=== PATIENT | female | born 1935 | race Caucasian/White ===

== ENCOUNTER 2018-12-04 08:01 | Emergency (ER) | payer OTHER ==
[~2018-12-04] VITALS: Ht 162.6 cm; Wt 80.0 kg
[~2018-12-04 08:01] MED LIST: AMIODARONE 150 MG INJ ONE; ATROPINE 1 MG/10 ML SYRINGE ONE; CA CHLORIDE 10% 10 ML SYRINGE ONE; EPINEPHrine 0.1 MG/ML SYG ONE; MAGNESIUM SULFATE 1 GM/100 ML D5W IVPB ONE; NA BICARBONATE 8.4% 50 ML SYG ONE
[2018-12-04 08:15] VITALS: RESP 16; Ht 162.6 cm; Wt 80.0 kg
[2018-12-04] MEDS ORDERED: NORepinephrine 8MG/250 ML (PMX 250 ML ONE (08:27)
[2018-12-04] MEDS ORDERED: SODIUM CHLORIDE 0.9% 1L BAG IV* STA (08:41)
[2018-12-04] MEDS ORDERED: VANCOMYCIN 1 GM (PMX) 250 ML IVPB STA (08:45)
[2018-12-04] MEDS ORDERED: CEFEPIME 2GM/50 ML (PMX) 50 ML IVPB STA (08:45)
[2018-12-04] MEDS ORDERED: AMIODARONE 900 MG in DEXTROSE 5% 482 ML IV SCH (09:00)
[2018-12-04] MEDS ORDERED: DOPamine-D5W 1.6 MG/ML 250 ML IV ONE (09:00)
[2018-12-04] MEDS ORDERED: NORepinephrine 8MG/250 ML (PMX 250 ML IV ONE (09:00)
[2018-12-04] MEDS ORDERED: SODIUM CHLORIDE 0.9% 500 ML BAG IV* STA (09:05)
[2018-12-04] MEDS ORDERED: IODIXANOL LOCM 50 ML BTL ONE (09:21)
[2018-12-04] MEDS ORDERED: SOD CHLORIDE 0.9% 100 ML ONE (09:21)
[2018-12-04] MEDS ORDERED: IODIXANOL LOCM 100 ML BTL ONE (09:21)
--- NOTE | 2018-12-04 10:36 | ERD ---
ER Documentation Chief Complaint Chief Complaint pt daisy from home in cardiac arrest, cpr innitiated at home HPI This is an 83-year-old female with a past medical history of dementia and diabetes who is presenting in cardiac arrest. The patient was reportedly at home with her son when she suddenly collapsed. She lost pulses, and the son started CPR shortly thereafter. He did also call an ambulance. When the ambulance responded, the patient reportedly had pulses but had agonal breathing. She was intubated. She went into cardiac arrest shortly after that. She has pulseless electrical activity. She was given 2 doses of epinephrine prior to arrival and reportedly had return of spontaneous circulation. The patient had a weak pulse when she arrived. History and physical is limited secondary to altered mentation and acuity of condition. ROS Limited secondary to acuity of condition. Allergies Allergies: Coded Allergies: No Known Allergy (Unverified , 12/04/18) PMhx/Soc Hx Neurological Disorder: Yes (Dementia) Hx Miscellaneous Medical Probl: Yes (dm) Hx Alcohol Use: No Hx Substance Use: No Hx Tobacco Use: No Smoking Status: Never smoker FmHx Family History: No diabetes Physical Exam Vitals Vital Signs Date Temp Pulse Resp B/P (MAP) Pulse Ox O2 O2 Flow FiO2 Time Delivery Rate 12/04/18 60 16 90 100 08:15 12/04/18 0 0 0/0 (0) 0 08:15 Physical Exam Objective: Vital signs reviewed Const: Unresponsive Head: Normocephalic, Atraumatic Eyes: PERRL ENT: Normal External Ears, Nose and Mouth. Resp: No voluntary respirations. Respirations being assisted via BVM by a respiratory therapist with symmetric chest wall padron. Cardio: Regular rate Abd: Non distended Skin: No petechiae or rashes Back: Deferred Ext: No cyanosis, or edema Neur: Unresponsive. Eyes closed. No voluntary movements or response to pain. Nonverbal. GCS 3. Result Diagram: 12/04/18 0650 12/04/18 0650 Results 24 hrs Laboratory Tests Test 12/04/18 06:50 White Blood Count 8.0 10^3/ul Red Blood Count 2.52 10^6/ul Hemoglobin 7.1 g/dl Hematocrit 23.8 % Mean Corpuscular Volume 94.4 fl Mean Corpuscular Hemoglobin 28.2 pg Mean Corpuscular Hemoglobin Concent 29.8 g/dl Red Cell Distribution Width 13.6 % Platelet Count 73 10^3/UL Mean Platelet Volume 8.8 fl Immature Granulocytes % 4.800 % Segmented Neutrophils % (Manual) 27 % Band Neutrophils % (Manual) 4 % Lymphocytes % (Manual) 64 % Monocytes % (Manual) 2 % Eosinophils % (Manual) 1 % Metamyelocytes % (manual) 2 % Nucleated Red Blood Cells % 1 % Immature Granulocytes # 0.380 10^3/ul Neutrophils # (Manual) 2.2 10^3/ul Band Neutrophils # 0.3 10^3/ul Lymphocytes (Manual) 5.1 10^3/ul Monocytes # (Manual) 0.1 10^3/ul Metamyelocytes # 0.1 10^3/ul Platelet Estimate DECREASED Poikilocytosis 2+ Anisocytosis 2+ Microcytosis 2+ Prothrombin Time 25.6 Sec Prothrombin Time Ratio 2.0 INR International Normalized Ratio 2.33 Activated Partial Thromboplast Time 73.9 Sec Sodium Level 147 mmol/L Potassium Level 2.8 mmol/L Chloride Level 123 mmol/L Carbon Dioxide Level 15 mmol/L Anion Gap 9 Blood Urea Nitrogen 8 mg/dl Creatinine 0.50 mg/dl Est Glomerular Filtrat Rate mL/min mL/min Glucose Level 263 mg/dl Calcium Level 5.2 mg/dl Phosphorus Level 4.1 mg/dl Magnesium Level 2.3 mg/dl Total Bilirubin 0.1 mg/dl Direct Bilirubin 0.00 mg/dl Indirect Bilirubin 0.1 mg/dl Aspartate Amino Transf (AST/SGOT) 84 IU/L Alanine Aminotransferase (ALT/SGPT) 85 IU/L Alkaline Phosphatase 57 IU/L Troponin I 0.197 ng/ml Total Protein 3.0 g/dl Albumin 1.5 g/dl Globulin 1.50 g/dl Albumin/Globulin Ratio 1.00 Lipase 48 U/L Ethyl Alcohol Level < 10.0 mg/dl Current Medications Medications Dose Sig/Lisa Start Time Status Last (Trade) Ordered Route PRN Stop Time Admin Dose Reason Admin 250 ml @ ud STK-MED 12/04/18 DC Norepinephrin ONCE .ROUTE 08:27 12/04/18 e 08:28 Amiodarone 500 ml @ 0 Q0M IV 12/04/18 HCl 900 mls/hr 09:00 mg/Dextrose Sodium 2,400 ml BOLUS OVER 2 12/04/18 DC Chloride HOURS STAT 08:41 4/4/19 (NS) IV* 08:42 Cefepime HCl 50 ml @ ONCE STAT 12/04/18 DC 100 mls/hr IVPB 08:45 12/04/18 09:14 Vancomycin 250 ml @ ONCE STAT 12/04/18 DC HCl 125 mls/hr IVPB 08:45 12/04/18 10:44 250 ml @ PER PROTOCOL 12/04/18 Norepinephrin 7.5 mls/hr ONCE IV 09:00 12/05/18 e 18:19 Dopamine 250 ml @ PER PROTOCOL 12/04/18 HCl/ 15 mls/hr ONCE IV 09:00 12/05/18 Dextrose 01:39 Sodium 500 ml ONCE STAT 12/04/18 DC Chloride IV* 09:05 12/04/18 (NS) 09:09 IV Flush 10 ml STK-MED 12/04/18 DC (NS 10 ml) ONCE .ROUTE 09:12/04/18 09:22 Sodium 100 ml @ ud STK-MED 12/04/18 DC Chloride ONCE .ROUTE 09:12/04/18 09:22 Iodixanol 100 ml STK-MED 12/04/18 DC (Visipaque ONCE .ROUTE 09:12/04/18 Locm) 09:22 Iodixanol 50 ml STK-MED 12/04/18 DC (Visipaque ONCE .ROUTE 09:12/04/18 Locm) 09:22 Procedures/MDM MDM The patient's presentation warrants further investigation. Previous medical records, if available, were reviewed. LABS The patient's laboratory testing was obtained and reviewed. No emergent alexa tment was required unless described below. CBC: Anemic. Thrombocytopenic. No E/o systemic infection. Chemistry: Hypokalemia. Hypocalcemia. Hypoalbuminemia. Transaminitis. Non- anion gap metabolic acidosis. Hyperglycemia without DKA. PT/INR: E/o significant coagulopathy Troponin: E/o acute ischemia EKG EKG read by me: Rate/Rhythm: Regular rate and rhythm at a rate of 97 bpm Intervals: Wide QRS complex. Right bundle branch block. No obvious P waves. Hondo: Right axis deviation Impression: Regular rate and rhythm, diffuse ST changes, but no obvious STEMI. Right bundle branch block EKG read by me: Rate/Rhythm: Irregular regular rhythm indicating atrial fibrillation at 69 bpm with premature aberrant conduction Intervals: Wide QRS Hondo: Indeterminate Impression: Atrial fibrillation. Nonspecific repolarization changes. No STEMI. IMAGING Imaging and Radiology interpretation reviewed. CXR FINDINGS: The endotracheal tube tip is approximately 3.9 cm above the aiyana. There is a right internal jugular central venous catheter with tip in the mid SVC. Evaluation of lung parenchyma is limited secondary to overlying defibrillator pads. There is prominence of the interstitial markings. There left lower lobe interstitial opacities. No pleural effusion or pneumothorax is seen. The cardiomediastinal silhouette is mildly enlarged. Calcifications are seen within the aortic arch. The osseous structures demonstrate senescent changes. IMPRESSION: 1. Limited evaluation of lung parenchyma secondary to overlying defibrillator pads. There left basilar interstitial opacities which may reflect atelectasis or pneumonia. 2. Mild prominence of the interstitial markings, may reflect mild underlying interstitial edema or chronic lung changes. 3. Mild cardiomegaly and aortic atherosclerosis. 4. Tubes and lines, as described above. Electronically viewed and signed by Rocio Herr MD, on 12/04/2018 09:56 TREATMENT/DISPOSITION The patient stented initially after reported return of spontaneous circulation. Unfortunately, the patient lost pulses in the emergency department shortly after arrival. ACLS protocol was followed. Appropriate chest compressions were applied. Please see code sheet for detail of medication administration. The pa tient was given multiple rounds of epinephrine and bicarbonate. The patient was given magnesium and calcium in the emergency department as well. The patient's blood work was not immediately available to me during the code. The patient was ultimately found to be hypokalemic, but I do not feel that giving the patient potassium emergently would have changed the ultimate outcome. The patient was i nitially in PEA. She did at one time go into ventricular fibrillation and she was defibrillated twice. She was also given boluses of amiodarone and started on an amiodarone drip. The patient was hypotensive and bradycardic during her episodes of return of spontaneous circulation. She was ultimately started on norepinephrine and dopamine drips. I did place a central line in her right IJ without complication to allow for safe administration of these medications described above. The x-ray revealed a adequate placement. Please see procedure note below. The chest x-ray also demonstrated appropriate position of the endotracheal tube, placed prior to arrival by the paramedics. The patient's EKG did show findings that were potentially concerning for acute coronary syndrome. A code STEMI was called. The on-call family resource management specialist, Dr. Stewart, evaluated the patient and EKG at bedside and did not feel that it would be appropriate to bring the patient to the cardiac catheterization lab emerge ntly. The patient was never stable enough to receive any CT imaging. While the patient had a few instances of transient return of spontaneous circulation, we were never able to obtain sustained pulses. I had a very long conversation with the family regarding the patient's condition and very poor prognosis. The patient expressed understanding and were okay with ceasing resuscitative efforts. The patient had no heartbeat or pulse. She had no spontaneous breaths. Her pupils were fixed and dilated. She had no gag or corneal reflex. The patient had no spontaneous movements. She had no signs of life. Time of : 9:30 AM on December 04, 2018. PROCEDURES Central Line Placement Performer: Placed by me. Preprocedure: Central line placed emergently without ability to obtain consent. Patient sterilely draped, full prep, gown, glove, mask, time out performed. Anesthesia: None Location: Right internal jugular vein Device: Multiple lumen Technique: Seldinger technique. Secured with suture. Results: Venous return from all ports with easy saline flush. No complications. Postprocedure: No immediate complications. Guide wire retrieved and disposed of. ED Ultrasound: Central line placed by me using concurrent ultrasound guidance. Chest X-ray: 1V Interpreted by me. Central line in SVC, Normal soft tissue, No evidence of pneumothorax. CRITICAL CARE NOTE Time: 55 minutes excluding all billable procedures. Treatments/Evaluations: The patient was at risk of hemodynamic compromise. Timing of critical care involved close serial monitoring, evaluation of the patient's medical record including previous records & current laboratory/imaging studies, potential interventions for prevention of hemodynamic/ cardiopulmonary/ neurologic compromise, maintaining tight fluid balance, and any discussions with the family and/or consultants regarding the patient's status and prognosis. Disclaimer: Inadvertent spelling and grammatical errors are likely due to EHR/di ctation software use and do not reflect on the overall quality of patient care. Note that the electronic time recorded on this note does not necessarily reflect the actual time of the patient encounter. Departure Diagnosis: Primary Impression: Cardiac arrest Additional Impressions: Normocytic anemia Thrombocytopenia Bandemia NSTEMI (non-ST elevated myocardial infarction) Elevated troponin Atrial fibrillation Atrial fibrillation type: unspecified Qualified Codes: I48.91 - Unspecified atrial fibrillation Ventricular fibrillation PEA (Pulseless electrical activity) Asystole Hypokalemia Hypocalcemia Hypoalbuminemia Elevated INR Hyperglycemia Condition: Critical ADILIA GILMORE MD Dec 04, 2018 10:36
== END 2018-12-04 13:23 | disposition expired ==
LOC: EDBD 08:01 → E/R 08:01
DX: I46.9 Cardiac arrest, cause unspecified (principal); D64.9 Anemia, unspecified; D69.6 Thrombocytopenia, unspecified; D72.825 Bandemia; I21.4 Non-ST elevation (NSTEMI) myocardial infarction; I48.91 Unspecified atrial fibrillation; R79.89 Other specified abnormal findings of blood chemistry; I49.01 Ventricular fibrillation; E87.6 Hypokalemia; E83.51 Hypocalcemia; R77.0 Abnormality of albumin; E11.65 Type 2 diabetes mellitus with hyperglycemia
CPT/HCPCS: 36556; 71045; 76937; 80053; 80307; 83690; 83735; 84100; 84484; 85025; 85610; 85730; 86850; 86900; 86901; 87040; 92950; 93005; 94002; 99291; J0171; J0282; J0461; J3475; J7030; J7040; J7060; Q9967